=== PATIENT | female | born 1955 | race Caucasian/White ===

== ENCOUNTER 2017-05-24 18:41 | Emergency (ER) | payer OTHER ==
[~2017-05-24] VITALS: Ht 149.9 cm; Wt 69.0 kg
[~2017-05-24 18:41] MED LIST: ALL220TA; ASPI-99 PO; COQ-200C PO; CRES10TA PO; IRBE1TAB37; MUCI600T PO; PLAV75TA PO; PRAS10TA PO; PRED20 PO; PROP60CA PO; RANI150 PO
[2017-05-24 18:43] VITALS: BP 170/78; PULSE 78; RESP 20; TEMP 97.9; O2SAT 99
[2017-05-24 19:07] VITALS: BP 177/75; PULSE 82; RESP 14; O2SAT 99
[2017-05-24] MEDS ORDERED: IRBE75TA5 PO (19:07)
[2017-05-24] MEDS ORDERED: ASPI81CH25 PO (19:07)
[2017-05-24] MEDS ORDERED: PROP60TA PO (19:07)
[2017-05-24] MEDS ORDERED: ROSU5 PO (19:07)
[2017-05-24] MEDS ORDERED: ASPI81TA11 PO (19:16)
--- NOTE | 2017-05-24 19:27 | PD ---
HPI Chief Complaint: Eye Problems/Injury Time Seen by Provider: 19:19 Travel History International Travel<30 days: No Contact w/Intl Traveler<30days: No Traveled to known affect area: No History of Present Illness HPI This is a 61-year-old female with a history of hyperlipidemia, hypertension, coronary artery disease, who presents today after having an episode of seeing spots and lines in her eyes. The patient states she was out at the pool with her grandkids when she started developing an episode of wavy lines and spots. The patient and denied any headache at the time. She did state that she had an allergy headache 2 hours prior. She did report some lightheadedness and dizziness with the episode. She states she went inside into the dark and reports the symptoms lasted roughly is. She is asymptomatic at this time. She denies any missing of meals. She denies any dehydration. There are no other complaints time of my examination. PFSH Past Medical History Hx Anticoagulant Therapy: Yes (ASA) Blood Disorders: No Cancer: No Cardiac Catheterization: Yes (stent placement) Cardiovascular Problems: Yes (HTN; STENT) High Cholesterol: Yes Chest Pain: No Diabetes: Yes Diminished Hearing: No Endocrine: No Gastrointestinal Disorders: No Glaucoma: No Genitourinary: No Hepatitis: No Hiatal Hernia: No Hypertension: Yes Immune Disorder: No Musculoskeletal: No Neurologic: No Psychiatric: No Respiratory: Yes (SEASONAL ALLERGIES ) Integumentary: No Thyroid Disease: No Tetanus Vaccination: Unknown ?: Not Menopausal: Yes Past Surgical History Abdominal Surgery: Yes AICD: No Cholecystectomy: Yes (1998) Gynecologic Surgery: Yes (ABLATION FOR HEAVY MENSTRUAL BLEEDING 11/2006) Joint Replacement: No Neurologic Surgery: Yes (C5-6 FUSION 2003) Pacemaker: No Social History Alcohol Use: Yes (OCCASIONALLY) Tobacco Use: No Substance Use: No Allergies-Medications (Allergen,Severity, Reaction): Coded Allergies: Macrodantin (Verified Allergy, Severe, 05/24/17) Red Dyes - Various (Verified Allergy, Severe, 05/24/17) Sulfa (Verified Allergy, Severe, 05/24/17) Zithromax (Verified Allergy, Severe, 05/24/17) Uncoded Allergies: fluoroquiadone (Allergy, Severe, 05/13/13) vytorin (Allergy, Severe, 05/13/13) Reported Meds & Prescriptions Reported Meds & Active Scripts Active Keflex (Cephalexin) 500 Mg Cap 500 Mg PO BID Reported Aspirin EC (Aspirin) 81 Mg Tabdr 81 Mg PO BID Irbesartan 75 Mg Tab 75 Mg PO DAILY Crestor (Rosuvastatin Calcium) 5 Mg Tab 5 Mg PO FRIDAY Propranolol (Propranolol HCl) 60 Mg Tab 60 Mg PO DAILY Review of Systems Except as stated in HPI: all other systems reviewed are Neg General / Constitutional: No: Fever, Chills Eyes: Positive: Visual changes, No: Blindness HENT: Positive: Headaches (2 hours prior to the episode. Patient states this is like her "allergy" headaches.), No: Neck Stiffness, Neck Pain Cardiovascular: No: Chest Pain or Discomfort, Palpitations, Irregular Rhythm Respiratory: No: Cough, Shortness of Breath Gastrointestinal: No: Nausea, Vomiting, Abdominal Pain Musculoskeletal: No: Weakness, Pain Neurologic: Positive: Headache (2 hours prior to the episode), No: Weakness, Syncope, Change in Mentation, Sensory Disturbance Physical Exam Narrative GENERAL: Well-developed well-nourished female in no acute respiratory distress. SKIN: Focused skin assessment warm/dry. HEAD: Atraumatic. Normocephalic. EYES: Extraocular muscles were intact. No nystagmus. No scleral icterus. No injection or drainage. ENT: No nasal bleeding or discharge. Mucous membranes pink and moist. NECK: Trachea midline. No JVD. Supple. CARDIOVASCULAR: Regular rate and rhythm. No murmur appreciated. RESPIRATORY: No accessory muscle use. Clear to auscultation. Breath sounds equal bilaterally. GASTROINTESTINAL: Abdomen soft, non-tender, nondistended. Hepatic and splenic margins not palpable. MUSCULOSKELETAL: No obvious deformities. No clubbing. No cyanosis. No edema. NEUROLOGICAL: Awake and alert. No obvious cranial nerve deficits. Motor grossly within normal limits. Normal speech. PSYCHIATRIC: Appropriate mood and affect; insight and judgment normal. Data Data Last Documented VS Vital Signs Date Time Temp Pulse Resp B/P Pulse Ox O2 Delivery O2 Flow Rate FiO2 05/24/17 19:07 82 14 05/24/17 19:07 177/75 99 Room Air 05/24/17 18:43 97.9 Orders Electrocardiogram (05/24/17 19:20) Prothrombin Time / Inr (Pt) (05/24/17 19:20) Act Partial Throm Time (Ptt) (05/24/17 19:20) Complete Blood Count With Diff (05/24/17 19:20) Comprehensive Metabolic Panel (05/24/17 19:20) Creatine Kinase (Cpk) (05/24/17 19:20) Troponin I (05/24/17 19:20) Urinalysis - C+S If Indicated (05/24/17 19:20) Ct Brain W/O Iv Contrast(Rout) (05/24/17 19:20) Chest, Single Ap (05/24/17 19:20) Ecg Monitoring (05/24/17 19:20) Iv Access Insert/Monitor (05/24/17 19:20) Oximetry (05/24/17 19:20) Sodium Chloride 0.9% Flush (Ns Flush) (05/24/17 19:30) Sodium Chlorid 0.9% 500 Ml Inj (Ns 500 M (05/24/17 19:30) Urine Culture (05/24/17 20:51) Labs Laboratory Tests Test 05/24/17 05/24/17 19:30 20:51 White Blood Count 6.7 TH/MM3 Red Blood Count 4.85 MIL/MM3 Hemoglobin 14.4 GM/DL Hematocrit 42.5 % Mean Corpuscular Volume 87.8 FL Mean Corpuscular Hemoglobin 29.8 PG Mean Corpuscular Hemoglobin 33.9 % Concent Red Cell Distribution Width 13.9 % Platelet Count 235 TH/MM3 Mean Platelet Volume 8.2 FL Neutrophils (%) (Auto) 54.1 % Lymphocytes (%) (Auto) 33.3 % Monocytes (%) (Auto) 10.6 % Eosinophils (%) (Auto) 1.3 % Basophils (%) (Auto) 0.7 % Neutrophils # (Auto) 3.6 TH/MM3 Lymphocytes # (Auto) 2.2 TH/MM3 Monocytes # (Auto) 0.7 TH/MM3 Eosinophils # (Auto) 0.1 TH/MM3 Basophils # (Auto) 0.0 TH/MM3 CBC Comment DIFF FINAL Differential Comment Prothrombin Time 10.5 SEC Prothromb Time International 1.0 RATIO Ratio Activated Partial 25.9 SEC Thromboplast Time Sodium Level 139 MEQ/L Potassium Level 4.3 MEQ/L Chloride Level 107 MEQ/L Carbon Dioxide Level 26.4 MEQ/L Anion Gap 6 MEQ/L Blood Urea Nitrogen 12 MG/DL Creatinine 0.77 MG/DL Estimat Glomerular Filtration 76 ML/MIN Rate Random Glucose 150 MG/DL Calcium Level 9.0 MG/DL Total Bilirubin 0.3 MG/DL Aspartate Amino Transf 32 U/L (AST/SGOT) Alanine Aminotransferase 60 U/L (ALT/SGPT) Alkaline Phosphatase 63 U/L Total Creatine Kinase 96 U/L Troponin I LESS THAN 0.02 NG/ML Total Protein 6.7 GM/DL Albumin 3.7 GM/DL Urine Color LIGHT-YELLOW Urine Turbidity CLEAR Urine pH 6.0 Urine Specific [place] 1.006 Urine Protein NEG mg/dL Urine Glucose (UA) NEG mg/dL Urine Ketones NEG mg/dL Urine Occult Blood NEG Urine Nitrite NEG Urine Bilirubin NEG Urine Urobilinogen LESS THAN 2.0 MG/DL Urine Leukocyte Esterase NEG Urine RBC 1 /hpf Urine WBC 1 /hpf Urine Squamous Epithelial 1 /hpf Cells Urine Bacteria OCC /hpf Urine Mucus FEW /lpf Microscopic Urinalysis Comment CATH-CULTURE IND MDM Medical Decision Making Medical Screen Exam Complete: Yes Emergency Medical Condition: Yes Differential Diagnosis Vasovagal episode versus TIA versus atypical migraine Narrative Course 61-year-old female presents after having an episode of seeing spots and linear lines 10 minutes. The patient was out in the pool with her grandchildren when she started experiencing the symptoms. She reported a mild headache earlier. There is no headache now. She does report that she got lightheaded when the episode happened. She denies any symptoms at this time. Blood work shows a blood sugar of 150. Her ALT was slightly elevated at 60. Urinalysis does show a UTI and this was a catheter specimen. The patient will be discharged with a prescription for Keflex as she is allergic to Macrodantin Zithromax sulfa and fluoroquinolones. She'll follow up with her primary care doctor, Dr. Quinones. She has been offered admission for further workup but wishes to go home at this time. Diagnosis Primary Impression: transient visual changes Additional Impressions: Cystitis Elevated blood sugar Elevated ALT measurement Additional Instructions: Drink plenty of fluids. Return if symptoms return. Follow up with Dr. Quinones. Med/Other Pt SpecificInfo: Prescription(s) given Scripts Cephalexin (Keflex)500 Mg Azl588 Mg PO BID #14 CAP Ref 0 Prov:Jose Antonio Sandhu MD 05/24/17 Disposition: 01 DISCHARGE HOME Condition: Stable Jose Antonio Sandhu MD May 24, 2017 19:27
[2017-05-24] MEDS ORDERED: SODIUM CHLORIDE 0.9% FLUSH 10 ML FLUSH IVF PRN (19:30)
[2017-05-24] MEDS ORDERED: SODIUM CHLORID 0.9% 500 ML INJ 500 ML IV ONE (19:30)
--- NOTE | 2017-05-24 19:48 | RADRPT ---
EXAM DATE/TIME: 05/24/2017 19:36 [facility] COMPARISON: No previous studies available for comparison. INDICATIONS : Blurry vision and cephalgia. RADIATION DOSE: 34.03 CTDIvol (mGy) MEDICAL HISTORY : Cardiovascular disease. Hypertension. Diabetes mellitus type 2. SURGICAL HISTORY : Cholecystectomy. Spinal fusion. ENCOUNTER: Initial ACUITY: 1 day PAIN SCALE: 8/10 LOCATION: cranial TECHNIQUE: Multiple contiguous axial images were obtained of the head. Using automated exposure control and adj ustment of the mA and/or kV according to patient size, radiation dose was kept as low as reasonably a chievable to obtain optimal diagnostic quality images. DICOM format image data is available electro nically for review and comparison. FINDINGS: CEREBRUM: The ventricles are normal for age. No evidence of midline shift, mass lesion, hemorrhage or acute in farction. No extra-axial fluid collections are seen. POSTERIOR FOSSA: The cerebellum and brainstem are intact. The 4th ventricle is midline. The cerebellopontine angle i s unremarkable. EXTRACRANIAL: The visualized portion of the orbits is intact. There is mucosal disease at the left maxillary and et hmoid sinuses. SKULL: The calvaria is intact. No evidence of skull fracture. CONCLUSION: 1. No intracranial abnormality seen. 2. Left-sided sinus disease. Lane Angeles MD on May 24, 2017 at 19:44 Board Certified Radiologist. This report was verified electronically.
[2017-05-24 20:01] LABS: AUTOMATED NEUTROPHIL # 3.6 TH/MM3 (1.8-7.7); BASOPHIL % 0.7 % (0.0-2.0); EOSINOPHIL # 0.1 TH/MM3 (0-0.4); EOSINOPHIL % 1.3 % (0.0-4.0); HEMATOCRIT 42.5 % (35.0-46.0); HEMO FLAGS DIFF FINAL; LYMPH % 33.3 % (9.0-44.0); LYMPHOCYTE # 2.2 TH/MM3 (1.0-4.8); MEAN CELL VOLUME 87.8 FL (80.0-100.0); MEAN CORPUSCULAR HEMOGLOBIN 29.8 PG (27.0-34.0); MEAN CORPUSCULAR HGB CONC 33.9 % (32.0-36.0); MONO % 10.6 % (0.0-8.0); NEUT % 54.1 % (16.0-70.0); PLATELET COUNT 235 TH/MM3 (150-450); RED BLOOD COUNT 4.85 MIL/MM3 (4.00-5.30); RED CELL DISTRIBUTION WIDTH 13.9 % (11.6-17.2); WHITE BLOOD COUNT 6.7 TH/MM3 (4.0-11.0)
--- NOTE | 2017-05-24 20:02 | RADRPT ---
EXAM DATE/TIME: 05/24/2017 19:51 [facility] COMPARISON: No previous studies available for comparison. INDICATIONS : Weakness. CVA symptoms. MEDICAL HISTORY : None. SURGICAL HISTORY : None. ENCOUNTER: Initial ACUITY: 1 day PAIN SCORE: 6/10 LOCATION: Bilateral chest FINDINGS: A single view of the chest demonstrates the lungs to be symmetrically aerated without evidence of mas s, infiltrate or effusion. The cardiomediastinal contours are unremarkable. Osseous structures are intact. There is an anterior cervical fusion plate at lower cervical spine. CONCLUSION: No acute disease. Lane Angeles MD on May 24, 2017 at 19:59 Board Certified Radiologist. This report was verified electronically.
[2017-05-24 20:11] LABS: APTT (PATIENT) 25.9 SEC (24.3-30.1); PROTHROMBIN TIME - PATIENT 10.5 SEC (9.8-11.6)
[2017-05-24 20:20] LABS: ANION GAP 6 MEQ/L (5-15); AST (GOT) 32 U/L (15-37); BICARBONATE 26.4 MEQ/L (21.0-32.0); BLOOD UREA NITROGEN 12 MG/DL (7-18); CHLORIDE 107 MEQ/L (98-107); GLOMERULAR FILTRATION RATE 76 ML/MIN (>89); POTASSIUM 4.3 MEQ/L (3.5-5.1); SODIUM (NA) 139 MEQ/L (136-145)
[2017-05-24 20:21] LABS: ALT (GPT) 60 U/L (10-53)
[2017-05-24 20:24] LABS: ALKALINE PHOSPHATASE 63 U/L (45-117); TOTAL BILIRUBIN ADULT 0.3 MG/DL (0.2-1.0)
[2017-05-24 20:34] LABS: CREATINE KINASE 96 U/L (26-192)
[2017-05-24 21:22] LABS: BACTERIA, URINE OCC /hpf; BLOOD, URINE NEG (NEG); GLUCOSE,URINE NEG (NEG); KETONE, URINE NEG (NEG); MUCUS URINE FEW /lpf (OCC); NITRITE,URINE NEG (NEG); SQUAMOUS EPITHELIAL CELL URINE 1 /hpf (0-5); URINE COLOR LIGHT-YELLOW (YELLW/STRAW)
[2017-05-24 21:23] LABS: COMMENT (UR) CATH-CULTURE IND; CULTURE IF INDICATED CATH CULTURE IND
[2017-05-24] MEDS ORDERED: CEPH-460 PO (21:30)
[2017-05-24 21:47] VITALS: BP 156/71
--- NOTE | 2017-05-25 13:27 | EKG ---
Date Performed: 05/24/2017 Time Performed: 19:18:47 PTAGE: 61 years EKG: Sinus rhythm NORMAL ECG NO PREVIOUS TRACING Compared to prior tracing no significant change DOCTOR: Mel Stone Interpretating Date/Time 05/25/2017 13:20:58
== END 2017-05-24 21:51 | disposition home or self-care (01) ==
LOC: NEPE 18:41
DX: H53.9 Unspecified visual disturbance (principal); N30.90 Cystitis, unspecified without hematuria; E11.65 Type 2 diabetes mellitus with hyperglycemia; R74.0 Nonspecific elevation of levels of transaminase and lactic acid dehydrogenase [LDH]; B96.20 Unspecified Escherichia coli [E. coli] as the cause of diseases classified elsewhere; I25.10 Atherosclerotic heart disease of native coronary artery without angina pectoris; I10 Essential (primary) hypertension
CPT/HCPCS: 70450; 71010; 80053; 81001; 82550; 84484; 85025; 85610; 85730; 87077; 87086; 87186; 93005; 99285; J7040

== ENCOUNTER 2017-07-12 16:00 | Emergency (ER) | payer OTHER ==
[~2017-07-12] VITALS: Ht 149.9 cm; Wt 72.3 kg
[~2017-07-12 16:00] MED LIST changes: -ALL220TA; -ASPI-99 PO; +ASPI81TA11 PO; +CEPH-460 PO; -COQ-200C PO; -CRES10TA PO; -IRBE1TAB37; +IRBE75TA5 PO; -MUCI600T PO; -PLAV75TA PO; -PRAS10TA PO; -PRED20 PO; -PROP60CA PO; +PROP60TA PO; -RANI150 PO; +ROSU5 PO
[2017-07-12 16:17] VITALS: BP 125/61; PULSE 92; RESP 16; TEMP 98.6; O2SAT 98
[2017-07-12] MEDS ORDERED: BISM1CHW5 CHEW (16:42)
--- NOTE | 2017-07-12 16:42 | PD ---
HPI Chief Complaint: GI Complaint Time Seen by Provider: 16:22 Travel History International Travel<30 days: No Contact w/Intl Traveler<30days: No Traveled to known affect area: No History of Present Illness HPI 61-year-old female reports diarrhea this morning, 6 episodes, abdominal cramping reported, a couple episodes of blood on the toilet paper were noted in association with the bowel movements. No blood in the toilet or hematochezia. She reports finishing a course of Keflex almost a month ago. No sick contacts. Nobody else sick at home. Patient's diet has been normal. Patient reports aggressive oral rehydration today however less intake of solids. PFSH Past Medical History Hx Anticoagulant Therapy: Yes (ASA) Blood Disorders: No Cancer: No Cardiac Catheterization: Yes (stent placement) Cardiovascular Problems: Yes (HTN) High Cholesterol: Yes Chest Pain: No Diabetes: Yes Diminished Hearing: No Endocrine: No Gastrointestinal Disorders: No Glaucoma: No Genitourinary: No Hepatitis: No Hiatal Hernia: No Hypertension: Yes Immune Disorder: No Musculoskeletal: No Neurologic: No Psychiatric: No Respiratory: Yes (SEASONAL ALLERGIES ) Integumentary: No Thyroid Disease: No ?: Not Menopausal: Yes Past Surgical History Abdominal Surgery: Yes AICD: No Cholecystectomy: Yes (1998) Gynecologic Surgery: Yes (ABLATION FOR HEAVY MENSTRUAL BLEEDING 11/2006) Joint Replacement: No Neurologic Surgery: Yes (C5-6 FUSION 2003) Pacemaker: No Social History Alcohol Use: Yes (OCCASIONALLY) Tobacco Use: No Substance Use: No Allergies-Medications (Allergen,Severity, Reaction): Coded Allergies: Sulfa (Sulfonamide Antibiotics) (Verified Allergy, Severe, Hives, 07/12/17) azithromycin (Verified Allergy, Severe, Hives, 07/12/17) nitrofurantoin (Verified Allergy, Severe, Hives, 07/12/17) red dye (Verified Allergy, Severe, Hives, 07/12/17) Uncoded Allergies: fluoroquiadone (Allergy, Severe, 05/13/13) vytorin (Allergy, Severe, 05/13/13) Reported Meds & Prescriptions Reported Meds & Active Scripts Active Bentyl (Dicyclomine HCl) 10 Mg Cap 10 Mg PO QID Flagyl (Metronidazole) 500 Mg Tab 500 Mg PO TID 10 Days Bismuth Subsalicylate 262 Mg Chew 524 Mg CHEW BID PRN 3 Days Do not exceed 8 doses in 24 hours. Reported Aspirin EC (Aspirin) 81 Mg Tabdr 81 Mg PO BID Irbesartan 75 Mg Tab 75 Mg PO DAILY Crestor (Rosuvastatin Calcium) 5 Mg Tab 5 Mg PO FRIDAY Propranolol (Propranolol HCl) 60 Mg Tab 60 Mg PO DAILY Review of Systems Except as stated in HPI: all other systems reviewed are Neg General / Constitutional: No: Fever Physical Exam Narrative GENERAL: Well-nourished well-developed 61-year-old female no acute distress SKIN: Warm and dry. HEAD: Atraumatic. Normocephalic. EYES: Pupils equal and round. No scleral icterus. No injection or drainage. ENT: No nasal bleeding or discharge. Mucous membranes pink and moist. NECK: Trachea midline. No JVD. CARDIOVASCULAR: Regular rate and rhythm. RESPIRATORY: No accessory muscle use. Clear to auscultation. Breath sounds equal bilaterally. GASTROINTESTINAL: Abdomen soft, non-tender, nondistended. Hepatic and splenic margins not palpable. MUSCULOSKELETAL: Extremities without clubbing, cyanosis, or edema. No obvious deformities. NEUROLOGICAL: Awake and alert. No obvious cranial nerve deficits. Motor grossly within normal limits. Five out of 5 muscle strength in the arms and legs. Normal speech. PSYCHIATRIC: Appropriate mood and affect; insight and judgment normal. Data Data Last Documented VS Vital Signs Date Time Temp Pulse Resp B/P Pulse Ox O2 Delivery O2 Flow Rate FiO2 07/12/17 16:17 98.6 92 16 125/61 98 Vital signs reviewed Orders Stool Wbc (Leukocytes) (07/12/17 16:34) Enteric Path (Stool) (07/12/17 16:34) C Diff Toxin Pcr (07/12/17 16:34) Dicyclomine (Bentyl) (07/12/17 17:00) Metronidazole (Flagyl) (07/12/17 17:00) MDM Medical Decision Making Medical Screen Exam Complete: Yes Emergency Medical Condition: Yes Differential Diagnosis Constipation, Gastritis, Acute Cholecystitis, Biliary Colic, Pancreatitis, ROSA , Hepatitis, Bowel Obstruction, Cystitis, Mesenteric Ischemia, AAA, Appendicitis , Renal Stone/Hydronephrosis, GERD, perforated viscous Narrative Course Patient has diarrhea with trace blood. She took antibiotics month ago. She is well-appearing with normal vital signs and a nontender abdomen. She has good follow-up with Dr. Quinones and Dr. Huerta. At this point admission is not indicated. We will defer IV fluids and blood work, which is in accord with the patient purposes, and cover with Flagyl. Patient will follow-up with outside providers. Return precautions discussed. Diagnosis Primary Impression: Diarrhea Qualified Code: R19.7 - Diarrhea, unspecified type Referrals: Ltaonya Huerta MD 2 days Korey Quinones MD 2 days Additional Instructions: You have a choice when it comes to health care, and we are glad that you chose [facility]. Hopefully, we have met your expectations on today's visit. You are welcome to return to [facility] at any time, as we are committed to meeting the health care needs of our community. Med/Other Pt SpecificInfo: Prescription(s) given Scripts Dicyclomine (Bentyl)10 Mg Cap10 Mg PO QID #10 CAP Ref 0 Prov:Khadar Colmenares MD 07/12/17 Metronidazole (Flagyl)500 Mg [id number] Mg PO TID 10 Days Ref 0 Prov:Khadar Colmenares MD 07/12/17 Bismuth Subsalicylate 262 Mg [id number] Mg CHEW BID PRN (INDIGESTION OR UPSET STOMACH) 3 Days Ref 0 Do not exceed 8 doses in 24 hours. Prov:Khadar Colmenares MD 07/12/17 Disposition: 01 DISCHARGE HOME Condition: Stable Khadar Colmenares MD Jul 12, 2017 16:42
[2017-07-12] MEDS ORDERED: DICY10 PO (16:45)
[2017-07-12] MEDS ORDERED: METR-1 PO (16:45)
[2017-07-12] MEDS ORDERED: DICYCLOMINE HCL 10 MG CAP PO ONE (17:00)
[2017-07-12] MEDS ORDERED: metroNIDAZOLE 500 MG TAB PO ONE (17:00)
[2017-07-17] MEDS ORDERED: FLOR250C PO (13:33)
== END 2017-07-12 17:54 | disposition home or self-care (01) ==
LOC: PHED 16:00
DX: R19.7 Diarrhea, unspecified (principal)
CPT/HCPCS: 99284

== ENCOUNTER → 2017-09-19 | Outpatient (CLI) | payer OTHER ==
[~2017-09-19] MED LIST changes: +BISM1CHW5 CHEW; -CEPH-460 PO; +COQ-100C5 PO; +CYCL1TAB29 PO; +DICY10 PO; +FEXO15TA PO; +FLOR250C PO; +METR-1 PO; +SUDA120T6 PO; +VITACAP7 PO; +ZANT150T2 PO
[2017-09-19 10:47] LABS: ANION GAP 8 MEQ/L (5-15); AST (GOT) 38 U/L (15-37); BICARBONATE 23.9 MEQ/L (21.0-32.0); BLOOD UREA NITROGEN 8 MG/DL (7-18); CHLORIDE 105 MEQ/L (98-107); GLOMERULAR FILTRATION RATE 105 ML/MIN (>89); POTASSIUM 4.1 MEQ/L (3.5-5.1); SODIUM (NA) 137 MEQ/L (136-145)
[2017-09-19 10:49] LABS: ALKALINE PHOSPHATASE 67 U/L (45-117); ALT (GPT) 73 U/L (10-53); FERRITIN 132 NG/ML (8-252); HDL CHOLESTEROL 55.1 MG/DL (40.0-60.0); LDL CHOLESTEROL 101 MG/DL (0-99); TOTAL BILIRUBIN ADULT 0.4 MG/DL (0.2-1.0); TRANSFERRIN IRON PROFILE 236 MG/DL (200-360)
[2017-09-19 12:15] LABS: HEPATITIS B SURFACE ANTIBODY 0 mIU/mL
[2017-09-21 03:52] LABS: IGA SERUM 266 mg/dL (81-463)
[2017-09-22 15:05] LABS: ANA SCREEN POS (NEG)
[2017-09-23 03:50] LABS: ENDOMYSIAL AB TITER ND (<1:5); MITOCHONDRIAL ABS LESS THAN 20.0 U (<=20.0); TISSUE TRANSGLUTAMINASE AB LESS THAN 1 U/mL (0-4)
== END ==
LOC: CLAB 09:36
PROVIDERS: ATTEND Family Medicine
DX: E78.2 Mixed hyperlipidemia (principal); E78.00 Pure hypercholesterolemia, unspecified; I25.10 Atherosclerotic heart disease of native coronary artery without angina pectoris; R79.89 Other specified abnormal findings of blood chemistry; K62.5 Hemorrhage of anus and rectum; A09 Infectious gastroenteritis and colitis, unspecified
CPT/HCPCS: 36415; 80053; 80061; 80074; 82103; 82390; 82525; 82728; 82784; 83516; 83520; 83540; 83550; 85652; 86038; 86039; 86255; 86317; 86708

== ENCOUNTER → 2017-09-26 | Outpatient (CLI) | payer OTHER ==
[~2017-09-26] VITALS: Ht 149.9 cm; Wt 69.4 kg
[~2017-09-26] MED LIST changes: -ASPI81TA11 PO; +ASPI81TA23 PO; -BISM1CHW5 CHEW; +CHLORHEXIDINE GLUCONATE 2 % 1 PACK (2 CLOTHS) TOPICAL PRN; +CYCL10TA PO; -CYCL1TAB29 PO; -DICY10 PO; -FLOR250C PO; +INSULIN HUMAN REGULAR 1,000 UNITS/10 ML VIAL SQ PRN; +LACTATED RINGER'S 1000 ML IV PRN; +METOPROLOL TARTRATE 25 MG TAB PO PRN; -METR-1 PO; +POVIDONE IODINE 5% (ANTISEPSIS KIT) 4 APPLICATIONS EACH NARE PRN; +SODIUM CHLORID 0.9% 500 ML IV PRN
--- NOTE | 2017-09-26 12:22 | GIPROC ---
[facility] [address] [facility]. [facility], [address] COLONOSCOPY PROCEDURE REPORT EXAM DATE: 09/26/2017 PATIENT NAME: Arabella Mims MR #: [id number] BIRTHDATE: 1955 ENDOSCOPIST: Shun Malagon MD ORDER #: [id number] COURTESY CAR DRIVER: Rosario Ward and Mamta Tapia STATUS: outpatient INDICATIONS: The patient is a 62 yr old female here for a colonoscopy due to patient's family history of colon polyps and high risk patient with personal history of colonic polyps PROCEDURE PERFORMED: Colonoscopy with biopsy MEDICATIONS: Per Anesthesia and None. PREP QUALITY: marginal PREP TYPE:Other: Prepopik ESTIMATED BLOOD LOSS: None CONSENT: The patient understands the risks and benefits of the procedure and understands that these risks include, but are not limited to: sedation, allergic reaction, infection, perforation and/or bleeding. Alternative means of evaluation and treatment include, among others: physical exam, x-rays, and/or surgical intervention. The patient elects to proceed with this endoscopic procedure. medical equipment was checked for proper function. Hand hygiene and appropriate measures for infection prevention was taken. After the risks, benefits and alternatives of the procedure were thoroughly explained, Informed consent was verified, confirmed and timeout was successfully executed by the treatment team. A digital exam revealed no abnormalities of the rectum The Pentax [id number] endoscope was introduced through the anus and advanced to the ileum. The instrument was then slowly withdrawn as the colon was fully examined. COLON FINDINGS: A smooth sessile polyp measuring 3 mm in size was found at the cecum. Multiple biopsies were performed using cold forceps. Small internal hemorrhoids were found. Retroflexion was not performed due to a narrow rectal vault The scope was then completely withdrawn from the patient and the procedure terminated. PROCEDURE WITHDRAWAL TIME:18minutes ADVERSE EVENTS: There were no complications. IMPRESSIONS: 1. A sessile polyp was found at the cecum; multiple biopsies were performed using cold forceps 2. Small internal hemorrhoids 3. Retroflexion was not performed due to a narrow rectal vault 4. Revealed no abnormalities of the rectum RECOMMENDATIONS: 1. Await biopsy results. Biopsy results will not be ready for 7-10 days. If you don't hear from us in two weeks, call our office for results. 2. ROV 1 month RECALL: Return 3 years Colonoscopy prep not optimal Shun Malagon MD eSigned: Shun Malagon MD 09/26/2017 12:22 PM cc: PATIENT NAME: Arabella Mims MR#: [id number]
[2017-09-26 12:55] VITALS: BP 137/62; PULSE 72; RESP 16; TEMP 97; O2SAT 100
== END ==
LOC: HOR 08:45
PROVIDERS: ATTEND Internal Medicine Gastroenterology
DX: Z12.11 Encounter for screening for malignant neoplasm of colon (principal); Z86.010 Personal history of colon polyps; D12.0 Benign neoplasm of cecum; K64.8 Other hemorrhoids; K21.9 Gastro-esophageal reflux disease without esophagitis
CPT/HCPCS: 00810; 45380; 88305; J7120

== ENCOUNTER → 2018-05-15 | Outpatient (CLI) | payer OTHER ==
[~2018-05-15] MED LIST changes: -CHLORHEXIDINE GLUCONATE 2 % 1 PACK (2 CLOTHS) TOPICAL PRN; -INSULIN HUMAN REGULAR 1,000 UNITS/10 ML VIAL SQ PRN; -LACTATED RINGER'S 1000 ML IV PRN; -METOPROLOL TARTRATE 25 MG TAB PO PRN; -POVIDONE IODINE 5% (ANTISEPSIS KIT) 4 APPLICATIONS EACH NARE PRN; -SODIUM CHLORID 0.9% 500 ML IV PRN
[2018-05-15 10:15] LABS: AUTOMATED NEUTROPHIL # 4.1 TH/MM3 (1.8-7.7); BASOPHIL % 0.7 % (0.0-2.0); EOSINOPHIL # 0.1 TH/MM3 (0-0.4); EOSINOPHIL % 1.2 % (0.0-4.0); HEMATOCRIT 42.5 % (35.0-46.0); HEMOGLOBIN 14.8 GM/DL (11.6-15.3); LYMPH % 31.7 % (9.0-44.0); LYMPHOCYTE # 2.3 TH/MM3 (1.0-4.8); MEAN CELL VOLUME 89.9 FL (80.0-100.0); MEAN CORPUSCULAR HEMOGLOBIN 31.3 PG (27.0-34.0); MEAN CORPUSCULAR HGB CONC 34.8 % (32.0-36.0); MEAN PLATELET VOLUME 7.8 FL (7.0-11.0); MONOCYTE # 0.6 TH/MM3 (0-0.9); NEUT % 57.4 % (16.0-70.0); PLATELET COUNT 244 TH/MM3 (150-450); RED BLOOD COUNT 4.72 MIL/MM3 (4.00-5.30); RED CELL DISTRIBUTION WIDTH 13.6 % (11.6-17.2); WHITE BLOOD COUNT 7.2 TH/MM3 (4.0-11.0)
[2018-05-15 10:44] LABS: WESTERGREN SEDIMENTATION RATE 15 mm/hr (0-30)
[2018-05-15 11:22] LABS: ALBUMIN 3.6 GM/DL (3.4-5.0); BLOOD UREA NITROGEN 12 MG/DL (7-18); CALCIUM 8.9 MG/DL (8.5-10.1); GLUCOSE,FASTING 132 MG/DL (74-99)
[2018-05-15 11:34] LABS: CREATININE 0.71 MG/DL (0.50-1.00); GLOMERULAR FILTRATION RATE 83 ML/MIN (>89); TOTAL PROTEIN 7.2 GM/DL (6.4-8.2)
[2018-05-15 11:35] LABS: ALKALINE PHOSPHATASE 61 U/L (45-117); ALT (GPT) 49 U/L (10-53); AST (GOT) 23 U/L (15-37); TOTAL BILIRUBIN ADULT 0.3 MG/DL (0.2-1.0)
[2018-05-15 11:36] LABS: BICARBONATE 20.3 MEQ/L (21.0-32.0); CHLORIDE 107 MEQ/L (98-107); CHOLESTEROL 159 MG/DL (120-200); HDL CHOLESTEROL 54.7 MG/DL (40.0-60.0); LDL CHOLESTEROL 73 MG/DL (0-99); SODIUM (NA) 138 MEQ/L (136-145); TRIGLYCERIDES 155 MG/DL (42-150)
[2018-05-15 11:37] LABS: C-REACTIVE PROTEIN 0.42 MG/DL (0.00-0.30); LDL CHOLESTEROL DIRECT 93 MG/DL (0-99)
[2018-05-18 07:50] LABS: SJOGRENS ANTIBODY SS-A <1.0 NEG AI (<1.0 NEGATIVE); SJOGRENS ANTIBODY SS-B <1.0 NEG AI (<1.0 NEGATIVE)
[2018-05-18 14:34] LABS: CARDIOLIPIN IGG AB <9.4 GPL; CARDIOLIPIN IGM AB <9.4 MPL
[2018-05-18 16:40] LABS: HLA-B27 Negative
== END ==
LOC: HLAB 09:16
PROVIDERS: ATTEND Allergy & Immunology
DX: E11.9 Type 2 diabetes mellitus without complications (principal); E78.2 Mixed hyperlipidemia; I11.9 Hypertensive heart disease without heart failure; I25.10 Atherosclerotic heart disease of native coronary artery without angina pectoris; E66.01 Morbid (severe) obesity due to excess calories; Z79.899 Other long term (current) drug therapy; M25.50 Pain in unspecified joint
CPT/HCPCS: 36415; 80053; 80061; 82088; 82550; 83721; 84550; 85025; 85652; 86038; 86039; 86140; 86147; 86235; 86812